=== PATIENT | female | born 1970 | race Caucasian/White ===

== ENCOUNTER → 2016-08-11 | Outpatient (CLI) | payer BC, OTHER | LOC: BMCIMAGING 17:27 | PROVIDERS: ATTEND Family Medicine | DX: M25.562 Pain in left knee (principal) ==

== ENCOUNTER → 2018-07-26 | Outpatient (CLI) | payer OTHER, MEDICAID | LOC: BMCIMAGING 08:35 | PROVIDERS: ATTEND Nurse Practitioner | DX: E04.1 Nontoxic single thyroid nodule (principal); E03.9 Hypothyroidism, unspecified; E78.2 Mixed hyperlipidemia | CPT/HCPCS: 76536-PO ==